=== PATIENT | male | born 1970 | race African-American/Black ===

== ENCOUNTER 2016-07-19 12:41 | Emergency (ER) | payer OTHER, MEDICAID ==
[~2016-07-19] VITALS: Ht 180.3 cm; Wt 107.0 kg
[~2016-07-19 12:41] MED LIST: ALBU1AER INH; FOLI1 PO; HYDR-3535 PO; ZOFR4TAB3 SL
[2016-07-19 12:54] VITALS: BP 145/77; PULSE 87; RESP 24; TEMP 98.8; O2SAT 100
[2016-07-19] MEDS ORDERED: SODIUM CHLOR 0.9% 1000 ML INJ 1,000 ML IV ONE ×2 (13:35→13:45)
[2016-07-19 13:44] LABS: BASOPHIL # 0.5 TH/MM3 (0-0.2); BASOPHIL % 5.9 % (0.0-2.0); EOSINOPHIL # 0.1 TH/MM3 (0-0.4); EOSINOPHIL % 0.7 % (0.0-4.0); HEMATOCRIT 35.9 % (39.0-51.0); LYMPH % 20.1 % (9.0-44.0); LYMPHOCYTE # 1.9 TH/MM3 (1.0-4.8); MEAN CELL VOLUME 78.3 FL (80.0-100.0); MEAN CORPUSCULAR HEMOGLOBIN 25.3 PG (27.0-34.0); MEAN CORPUSCULAR HGB CONC 32.4 % (32.0-36.0); NEUT % 64.3 % (16.0-70.0); PLATELET COUNT 194 TH/MM3 (150-450); RED BLOOD COUNT 4.59 MIL/MM3 (4.50-5.90); RED CELL DISTRIBUTION WIDTH 16.1 % (11.6-17.2); WHITE BLOOD COUNT 9.3 TH/MM3 (4.0-11.0)
[2016-07-19] MEDS ORDERED: diphenhydrAMINE HCL 50 MG/ML VIAL IV ONE (13:45)
[2016-07-19] MEDS ORDERED: HYDROmorphone HCL PF 2 MG/ML VIAL IVS ONE (13:45)
[2016-07-19] MEDS ORDERED: SODIUM CHLORIDE 0.9% FLUSH 5 ML FLUSH IVF PRN (13:45)
[2016-07-19 13:49] VITALS: BP 141/77; PULSE 69; RESP 18; O2SAT 98
[2016-07-19 13:49] LABS: BLOOD, URINE NEG (NEG); GLUCOSE,URINE NEG (NEG); KETONE, URINE NEG (NEG); NITRITE,URINE NEG (NEG); PH, URINE 7.5 (5.0-8.5)
[2016-07-19 13:50] LABS: METHOD OF COLLECTION CLEAN CATCH; URINE COLOR YELLOW (YELLW/STRAW)
[2016-07-19 13:52] LABS: CHLORIDE 110 MEQ/L (98-107); POTASSIUM 4.1 MEQ/L (3.5-5.1); SODIUM (NA) 143 MEQ/L (136-145)
[2016-07-19 13:53] LABS: COMMENT (UR) CULT NOT INDICATED; CULTURE IF INDICATED CULT NOT INDICATED; RBC, URINE 0-3 /hpf (0-3)
[2016-07-19 13:56] LABS: ANION GAP 12 MEQ/L (5-15); BICARBONATE 21.4 MEQ/L (21.0-32.0); BLOOD UREA NITROGEN 9 MG/DL (7-18)
[2016-07-19 13:59] LABS: ALT (GPT) 73 U/L (12-78); AST (GOT) 50 U/L (15-37); GLOMERULAR FILTRATION RATE 98 ML/MIN (>89)
[2016-07-19 14:00] LABS: TOTAL BILIRUBIN ADULT 1.5 MG/DL (0.2-1.0)
[2016-07-19 14:02] LABS: ALKALINE PHOSPHATASE 87 U/L (45-117)
[2016-07-19 14:05] LABS: POLYS (SEG NEUTROPHILS) 63 % (16-70); WBC DIFF SAMPLE 100
[2016-07-19 14:06] LABS: SCAN/DIFF FINAL DIFF MANUAL
[2016-07-19 14:17] LABS: HEMO FLAGS AUTO DIFF; NEUTROPHIL # MANUAL DIFF 5.9 TH/MM3 (1.8-7.7)
[2016-07-19 14:18] LABS: RETIC % 3.7 % (0.4-3.0)
--- NOTE | 2016-07-19 14:23 | PD ---
HPI Chief Complaint: Sickle Cell Time Seen by Provider: 13:32 Travel History International Travel<30 days: No Contact w/Intl Traveler<30days: No Traveled to known affect area: No History of Present Illness HPI Patient is a 46-year-old male with history of sickle cell disease, presents to emergency room with complaints of sickle cell crisis. Patient reports that when he has to sickle cell crisis, his upper back, his shoulders in all his joints are achy. Patient reports that his symptoms began last night and has progressed throughout the day today. Patient denies fevers or chills. Patient denies chest pain or shortness of breath. Patient reports that his symptoms feel exactly the same to when he has had this previous sickle cell crisis in the past. PFSH Past Medical History Anemia: Yes (SICKLE CELL DISEASE) Arthritis: No Asthma: Yes Autoimmune Disease: No Blood Disorders: Yes (SICKLE CELL) Heart Rhythm Problems: No Cancer: No Cardiovascular Problems: Yes High Cholesterol: No Chemotherapy: No Chest Pain: No Congestive Heart Failure: No COPD: No Cerebrovascular Accident: No Diabetes: No Diminished Hearing: No Endocrine: No Gastrointestinal Disorders: No GERD: No Glaucoma: No Genitourinary: No Headaches: No Hepatitis: No Hiatal Hernia: No Hypertension: No Immune Disorder: No Implanted Vascular Access Dvce: No Kidney Stones: No Musculoskeletal: No Neurologic: No Psychiatric: No Reproductive: No Respiratory: No Immunizations Current: Yes Migraines: No Myocardial Infarction: No Radiation Therapy: No Renal Failure: No Seizures: No Sickle Cell Disease: Yes Sleep Apnea: No Thyroid Disease: No Ulcer: No Influenza Vaccination: No ?: Not Past Surgical History Abdominal Surgery: Yes Appendectomy: No Cholecystectomy: Yes Ear Surgery: No Eye Surgery: No Other Surgery: Yes (CHOLECYSTECTOMY ) Social History Alcohol Use: Yes (OCC) Tobacco Use: No Substance Use: Yes (MARIJUANA) Allergies-Medications (Allergen,Severity, Reaction): Coded Allergies: No Known Allergies (Unverified , 07/19/16) Reported Meds & Prescriptions Reported Meds & Active Scripts Active No Active Prescriptions or Reported Medications Review of Systems General / Constitutional: No: Fever Eyes: No: Visual changes HENT: No: Headaches Cardiovascular: No: Chest Pain or Discomfort Respiratory: No: Shortness of Breath Gastrointestinal: No: Abdominal Pain Genitourinary: No: Dysuria Musculoskeletal: Positive: Arthralgias, Pain Skin: No Rash Neurologic: No: Weakness Psychiatric: No: Depression Endocrine: No: Polydipsia Hematologic/Lymphatic: No: Easy Bruising Physical Exam Narrative GENERAL: Patient uncomfortable and in moderate distress SKIN: Warm and dry. HEAD: Atraumatic. Normocephalic. ENT: No nasal bleeding or discharge. Mucous membranes pink and moist. NECK: Trachea midline. No JVD. CARDIOVASCULAR: Regular rate and rhythm. No murmur appreciated. RESPIRATORY: No accessory muscle use. Clear to auscultation. Breath sounds equal bilaterally. GASTROINTESTINAL: Abdomen soft, non-tender, nondistended. Hepatic and splenic margins not palpable. MUSCULOSKELETAL: No obvious deformities. No clubbing. No cyanosis. No edema. NEUROLOGICAL: Awake and alert. No obvious cranial nerve deficits. Motor grossly within normal limits. Normal speech. Data Data Last Documented VS Vital Signs Date Time Temp Pulse Resp B/P Pulse Ox O2 Delivery O2 Flow Rate FiO2 07/19/16 15:10 18 07/19/16 13:49 69 141/77 98 Nasal Cannula 2 07/19/16 12:54 98.8 Orders Complete Blood Count With Diff (07/19/16 13:35) Comprehensive Metabolic Panel (07/19/16 13:35) Retic Count (07/19/16 13:35) Urinalysis - C+S If Indicated (07/19/16 13:35) Ecg Monitoring (07/19/16 13:35) Iv Access Insert/Monitor (07/19/16 13:35) Oximetry (07/19/16 13:35) Hydromorphone Pf Inj (Dilaudid Pf Inj) (07/19/16 13:45) Sodium Chloride 0.9% Flush (Ns Flush) (07/19/16 13:45) Sodium Chlor 0.9% 1000 Ml Inj (Ns 1000 M (07/19/16 13:35) Diphenhydramine Inj (Benadryl Inj) (07/19/16 13:45) Sodium Chlor 0.9% 1000 Ml Inj (Ns 1000 M (07/19/16 13:45) Hydromorphone Pf Inj (Dilaudid Pf Inj) (07/19/16 14:30) Ketorolac Inj (Toradol Inj) (07/19/16 14:30) Labs Laboratory Tests Test 07/19/16 13:30 White Blood Count 9.3 TH/MM3 Red Blood Count 4.59 MIL/MM3 Hemoglobin 11.6 GM/DL Hematocrit 35.9 % Mean Corpuscular Volume 78.3 FL Mean Corpuscular Hemoglobin 25.3 PG Mean Corpuscular Hemoglobin 32.4 % Concent Red Cell Distribution Width 16.1 % Platelet Count 194 TH/MM3 Mean Platelet Volume 8.1 FL Neutrophils (%) (Auto) 64.3 % Lymphocytes (%) (Auto) 20.1 % Monocytes (%) (Auto) 9.0 % Eosinophils (%) (Auto) 0.7 % Basophils (%) (Auto) 5.9 % Neutrophils # (Auto) 6.0 TH/MM3 Lymphocytes # (Auto) 1.9 TH/MM3 Monocytes # (Auto) 0.8 TH/MM3 Eosinophils # (Auto) 0.1 TH/MM3 Basophils # (Auto) 0.5 TH/MM3 CBC Comment AUTO DIFF Differential Total Cells 100 Counted Neutrophils % (Manual) 63 % Lymphocytes % 26 % Monocytes % 11 % Neutrophils # (Manual) 5.9 TH/MM3 Differential Comment FINAL DIFF MANUAL Reticulocyte Count 3.7 % Absolute Reticulocyte Count 174.7 MIL/L Urine Collection Type CLEAN CATCH Urine Color YELLOW Urine Turbidity CLEAR Urine pH 7.5 Urine Specific [place] 1.015 Urine Protein NEG mg/dL Urine Glucose (UA) NEG mg/dL Urine Ketones NEG mg/dL Urine Occult Blood NEG Urine Nitrite NEG Urine Bilirubin NEG Urine Leukocyte Esterase NEG Urine RBC 0-3 /hpf Microscopic Urinalysis Comment CULT NOT INDICATED Sodium Level 143 MEQ/L Potassium Level 4.1 MEQ/L Chloride Level 110 MEQ/L Carbon Dioxide Level 21.4 MEQ/L Anion Gap 12 MEQ/L Blood Urea Nitrogen 9 MG/DL Creatinine 1.00 MG/DL Estimat Glomerular Filtration 98 ML/MIN Rate Random Glucose 103 MG/DL Calcium Level 8.9 MG/DL Total Bilirubin 1.5 MG/DL Aspartate Amino Transf 50 U/L (AST/SGOT) Alanine Aminotransferase 73 U/L (ALT/SGPT) Alkaline Phosphatase 87 U/L Total Protein 8.1 GM/DL Albumin 4.3 GM/DL MDM Medical Decision Making Medical Screen Exam Complete: Yes Emergency Medical Condition: Yes Interpretation(s) Vital Signs Date Time Temp Pulse Resp B/P Pulse Ox O2 Delivery O2 Flow Rate FiO2 07/19/16 14:12 18 07/19/16 13:49 69 18 141/77 98 Nasal Cannula 2 07/19/16 13:29 98 Nasal Cannula 2 07/19/16 12:54 98.8 87 24 145/77 100 Laboratory Tests Test 07/19/16 13:30 Differential Total Cells 100 Counted Neutrophils % (Manual) 63 % (16-70) Lymphocytes % 26 % (9-44) Monocytes % 11 % (0-8) Differential Comment FINAL DIFF MANUAL Urine Collection Type CLEAN CATCH Urine Color YELLOW (YELLW/STRAW) Urine Turbidity CLEAR (CLEAR) Urine pH 7.5 (5.0-8.5) Urine Specific [place] 1.015 (1.002-1.035) Urine Protein NEG mg/dL (NEG-TRACE) Urine Glucose (UA) NEG mg/dL (NEG) Urine Ketones NEG mg/dL (NEG) Urine Occult Blood NEG (NEG) Urine Nitrite NEG (NEG) Urine Bilirubin NEG (NEG) Urine Leukocyte Esterase NEG (NEG) Urine RBC 0-3 /hpf (0-3) Microscopic Urinalysis Comment CULT NOT INDICATED Sodium Level 143 MEQ/L (136-145) Potassium Level 4.1 MEQ/L (3.5-5.1) Chloride Level 110 MEQ/L (98-107) Carbon Dioxide Level 21.4 MEQ/L (21.0-32.0) Anion Gap 12 MEQ/L (5-15) Blood Urea Nitrogen 9 MG/DL (7-18) Creatinine 1.00 MG/DL (0.60-1.30) Estimat Glomerular Filtration 98 ML/MIN (>89) Rate Random Glucose 103 MG/DL (74-106) Calcium Level 8.9 MG/DL (8.5-10.1) Total Bilirubin 1.5 MG/DL (0.2-1.0) Aspartate Amino Transf 50 U/L (15-37) (AST/SGOT) Alanine Aminotransferase 73 U/L (12-78) (ALT/SGPT) Alkaline Phosphatase 87 U/L (45-117) Total Protein 8.1 GM/DL (6.4-8.2) Albumin 4.3 GM/DL (3.4-5.0) Laboratory Tests Test 07/19/16 13:30 White Blood Count 9.3 TH/MM3 (4.0-11.0) Red Blood Count 4.59 MIL/MM3 (4.50-5.90) Hemoglobin 11.6 GM/DL (13.0-17.0) Hematocrit 35.9 % (39.0-51.0) Mean Corpuscular Volume 78.3 FL (80.0-100.0) Mean Corpuscular Hemoglobin 25.3 PG (27.0-34.0) Mean Corpuscular Hemoglobin 32.4 % Concent (32.0-36.0) Red Cell Distribution Width 16.1 % (11.6-17.2) Platelet Count 194 TH/MM3 (150-450) Mean Platelet Volume 8.1 FL (7.0-11.0) Neutrophils (%) (Auto) 64.3 % (16.0-70.0) Lymphocytes (%) (Auto) 20.1 % (9.0-44.0) Monocytes (%) (Auto) 9.0 % (0.0-8.0) Eosinophils (%) (Auto) 0.7 % (0.0-4.0) Basophils (%) (Auto) 5.9 % (0.0-2.0) Neutrophils # (Auto) 6.0 TH/MM3 (1.8-7.7) Lymphocytes # (Auto) 1.9 TH/MM3 (1.0-4.8) Monocytes # (Auto) 0.8 TH/MM3 (0-0.9) Eosinophils # (Auto) 0.1 TH/MM3 (0-0.4) Basophils # (Auto) 0.5 TH/MM3 (0-0.2) CBC Comment AUTO DIFF Differential Total Cells 100 Counted Neutrophils % (Manual) 63 % (16-70) Lymphocytes % 26 % (9-44) Monocytes % 11 % (0-8) Neutrophils # (Manual) 5.9 TH/MM3 (1.8-7.7) Differential Comment FINAL DIFF MANUAL Reticulocyte Count 3.7 % (0.4-3.0) Absolute Reticulocyte Count 174.7 MIL/L (20.0-150.0) Urine Collection Type CLEAN CATCH Urine Color YELLOW (YELLW/STRAW) Urine Turbidity CLEAR (CLEAR) Urine pH 7.5 (5.0-8.5) Urine Specific [place] 1.015 (1.002-1.035) Urine Protein NEG mg/dL (NEG-TRACE) Urine Glucose (UA) NEG mg/dL (NEG) Urine Ketones NEG mg/dL (NEG) Urine Occult Blood NEG (NEG) Urine Nitrite NEG (NEG) Urine Bilirubin NEG (NEG) Urine Leukocyte Esterase NEG (NEG) Urine RBC 0-3 /hpf (0-3) Microscopic Urinalysis Comment CULT NOT INDICATED Sodium Level 143 MEQ/L (136-145) Potassium Level 4.1 MEQ/L (3.5-5.1) Chloride Level 110 MEQ/L (98-107) Carbon Dioxide Level 21.4 MEQ/L (21.0-32.0) Anion Gap 12 MEQ/L (5-15) Blood Urea Nitrogen 9 MG/DL (7-18) Creatinine 1.00 MG/DL (0.60-1.30) Estimat Glomerular Filtration 98 ML/MIN (>89) Rate Random Glucose 103 MG/DL (74-106) Calcium Level 8.9 MG/DL (8.5-10.1) Total Bilirubin 1.5 MG/DL (0.2-1.0) Aspartate Amino Transf 50 U/L (15-37) (AST/SGOT) Alanine Aminotransferase 73 U/L (12-78) (ALT/SGPT) Alkaline Phosphatase 87 U/L (45-117) Total Protein 8.1 GM/DL (6.4-8.2) Albumin 4.3 GM/DL (3.4-5.0) Differential Diagnosis Sickle cell crisis, acute chest syndrome, anemia, electrolyte abnormality Narrative Course Patient is a 46-year-old male who presents to the emergency room with complaints of sickle cell crisis. Patients symptoms began last night, and patient reports that symptoms are typical for his sickle cell crisis. Pt denies chest pain/sob. Pt requesting IV dilaudid for his pain. Patient does follow up with geological technical officer as outpt. cbc, bmp, retic count ordered for pt iv placed, will hydrate pt with iv fluids 1424: pt re-evaluated, pt with continued pain, will remediate, overall, pt reports that pain has improved Patient reevaluated, patient reports that he is feeling much better. Patient reports near resolution of symptoms. Patient reports that he is ready to go home. Patient request refill on his pain medications until he can be seen by his doctor. All labs and studies reviewed with pt in detail. Pt understands importance of following up with his geological technical officer and pcp. signs and symptoms of when to return to the emergency room reviewed with patient. Patient will return to ER as needed. Diagnosis Primary Impression: Vasoocclusive sickle cell crisis Patient Instructions: General Instructions, Narcotic given in the ED Additional Instructions: Please follow-up with your primary care doctor as well as your geological technical officer as soon as possible Please return to ER as needed Do not drive or operate heavy machinery while taking narcotic pain medication Med/Other Pt SpecificInfo: Prescription(s) given Scripts Oxycodone-Acetaminophen (Percocet)5-325 mg Tab1 Tab PO Q6H PRN (PAIN) #6 TAB Ref 0 Prov:Alicja Ervin DO 07/19/16 Disposition: 01 DISCHARGE HOME Condition: Stable Alicja Ervin DO Jul 19, 2016 14:23
[2016-07-19 14:24] LABS: REVIEW FLAG FINAL
[2016-07-19] MEDS ORDERED: HYDROmorphone HCL PF 1 MG/ML VIAL IV PUSH ONE (14:30)
[2016-07-19] MEDS ORDERED: KETOROLAC TROMETHAMINE 30 MG/ML (IVP) VIAL IV PUSH ONE (14:30)
[2016-07-19 15:10] VITALS: RESP 18
[2016-07-19] MEDS ORDERED: PERC5TAB12 PO (15:32)
[2016-07-19 15:47] VITALS: BP 140/76
== END 2016-07-19 15:48 | disposition home or self-care (01) ==
LOC: PHED 12:41
DX: D57.00 Hb-SS disease with crisis, unspecified (principal)
CPT/HCPCS: 80053; 81001; 85007; 85027; 85044; 96361; 96374; 96375; 96376; 99284; J1170; J1200; J1885; J7030

== ENCOUNTER 2016-11-04 06:23 | Emergency (ER) | payer OTHER, MEDICAID ==
[~2016-11-04] VITALS: Ht 177.8 cm; Wt 107.8 kg
[~2016-11-04 06:23] MED LIST changes: -ALBU1AER INH; -FOLI1 PO; -HYDR-3535 PO; +PERC5TAB12 PO; -ZOFR4TAB3 SL
[2016-11-04 06:31] VITALS: BP 142/80; PULSE 90; RESP 18; TEMP 98.9; O2SAT 100
[2016-11-04] MEDS ORDERED: SODIUM CHLOR 0.9% 1000 ML INJ 1,000 ML IV ONE (06:57)
[2016-11-04] MEDS ORDERED: ONDANSETRON HCL 4 MG/2 ML VIAL IVP ONE (07:00)
[2016-11-04] MEDS ORDERED: HYDROmorphone HCL PF 1 MG/ML VIAL IVS ONE (07:00)
[2016-11-04] MEDS ORDERED: SODIUM CHLORIDE 0.9% FLUSH 10 ML FLUSH IVF PRN (07:00)
--- NOTE | 2016-11-04 07:06 | PD ---
HPI Chief Complaint: Sickle Cell Time Seen by Provider: 06:59 Travel History International Travel<30 days: No Contact w/Intl Traveler<30days: No Traveled to known affect area: No History of Present Illness HPI The patient is a 46-year-old male with a history of sickle cell disease and frequent visitor to this emergency department who presents to emergency room with his usual sickle cell pain crisis symptoms, pain in the shoulders, throbbing pain across his chest, arthralgias and myalgias since 4:30 PM yesterday. The symptoms are progressively worsening. He denies any fever or chills. He denies any cough. He denies any nausea, vomiting or diarrhea. PFSH Past Medical History Anemia: Yes (SICKLE CELL DISEASE) Arthritis: No Asthma: Yes Autoimmune Disease: No Blood Disorders: Yes (SICKLE CELL) Heart Rhythm Problems: No Cancer: No Cardiovascular Problems: Yes High Cholesterol: No Chemotherapy: No Chest Pain: No Congestive Heart Failure: No COPD: No Cerebrovascular Accident: No Diabetes: No Diminished Hearing: No Endocrine: No Gastrointestinal Disorders: No GERD: No Glaucoma: No Genitourinary: No Headaches: No Hepatitis: No Hiatal Hernia: No Hypertension: No Immune Disorder: No Implanted Vascular Access Dvce: No Kidney Stones: No Musculoskeletal: No Neurologic: No Psychiatric: No Reproductive: No Respiratory: No Immunizations Current: Yes Migraines: No Myocardial Infarction: No Radiation Therapy: No Renal Failure: No Seizures: No Sickle Cell Disease: Yes Sleep Apnea: No Thyroid Disease: No Ulcer: No Past Surgical History Abdominal Surgery: Yes Appendectomy: No Cholecystectomy: Yes Ear Surgery: No Eye Surgery: No Other Surgery: Yes (CHOLECYSTECTOMY ) Social History Alcohol Use: Yes (OCC) Tobacco Use: No Substance Use: Yes (MARIJUANA) Allergies-Medications (Allergen,Severity, Reaction): Coded Allergies: No Known Allergies (Unverified , 07/19/16) Reported Meds & Prescriptions Reported Meds & Active Scripts Active Percocet (Oxycodone-Acetaminophen) 5-325 mg Tab 1 Tab PO Q6H PRN Review of Systems Except as stated in HPI: all other systems reviewed are Neg Physical Exam Narrative GENERAL: The patient is alert, oriented 3 in moderate discomfort distress with his pain. His vital signs show blood pressure 142/80 but otherwise normal. SKIN: Focused skin assessment warm/dry. No skin rashes noted. HEAD: Atraumatic. Normocephalic. EYES: Pupils equal and round. No scleral icterus. No injection or drainage. ENT: No nasal bleeding or discharge. Mucous membranes pink and moist. NECK: Trachea midline. No JVD. CARDIOVASCULAR: Regular rate and rhythm. No murmur appreciated. RESPIRATORY: No accessory muscle use. Clear to auscultation. Breath sounds equal bilaterally. GASTROINTESTINAL: Abdomen soft, non-tender, nondistended. Hepatic and splenic margins not palpable. No guarding or rebound is present. MUSCULOSKELETAL: No obvious deformities. No clubbing. No cyanosis. No edema. NEUROLOGICAL: Awake and alert. No obvious cranial nerve deficits. Motor grossly within normal limits. Normal speech. PSYCHIATRIC: Appropriate mood and affect; insight and judgment normal. Data Data Last Documented VS Vital Signs Date Time Temp Pulse Resp B/P Pulse Ox O2 Delivery O2 Flow Rate FiO2 11/04/16 06:55 16 100 Nasal Cannula 2 11/04/16 06:31 98.9 90 142/80 Orders Complete Blood Count With Diff (11/04/16 06:57) Comprehensive Metabolic Panel (11/04/16 06:57) Retic Count (11/04/16 06:57) Urinalysis - C+S If Indicated (11/04/16 06:57) Ecg Monitoring (11/04/16 06:57) Iv Access Insert/Monitor (11/04/16 06:57) Oximetry (11/04/16 06:57) Ondansetron Inj (Zofran Inj) (11/04/16 07:00) Sodium Chloride 0.9% Flush (Ns Flush) (11/04/16 07:00) Sodium Chlor 0.9% 1000 Ml Inj (Ns 1000 M (11/04/16 06:57) Hydromorphone Pf Inj (Dilaudid Pf Inj) (11/04/16 07:00) [facility] Medical Decision Making Medical Screen Exam Complete: Yes Emergency Medical Condition: Yes Medical Record Reviewed: Yes Differential Diagnosis Vaso-occlusive crisis, anemia, sepsis, electrolyte disorder, chest pain syndrome Narrative Course It is now 704 and the patient is transferred to Dr. Grace. Michael Castro MD Nov 04, 2016 07:06
[2016-11-04 07:33] VITALS: BP 140/76; PULSE 76; RESP 16; O2SAT 100
[2016-11-04 07:40] LABS: AUTOMATED NEUTROPHIL # 7.7 TH/MM3 (1.8-7.7); BASOPHIL # 0.2 TH/MM3 (0-0.2); BASOPHIL % 1.4 % (0.0-2.0); EOSINOPHIL # 0.2 TH/MM3 (0-0.4); EOSINOPHIL % 1.4 % (0.0-4.0); HEMATOCRIT 35.3 % (39.0-51.0); MEAN CELL VOLUME 78.5 FL (80.0-100.0); MEAN CORPUSCULAR HEMOGLOBIN 24.5 PG (27.0-34.0); MEAN CORPUSCULAR HGB CONC 31.2 % (32.0-36.0); MONO % 8.7 % (0.0-8.0); NEUT % 70.5 % (16.0-70.0); PLATELET COUNT 178 TH/MM3 (150-450); RED CELL DISTRIBUTION WIDTH 16.5 % (11.6-17.2); WHITE BLOOD COUNT 11.1 TH/MM3 (4.0-11.0)
[2016-11-04 07:41] LABS: CHLORIDE 103 MEQ/L (98-107); HEMO FLAGS AUTO DIFF; POTASSIUM 4.1 MEQ/L (3.5-5.1); SODIUM (NA) 140 MEQ/L (136-145)
[2016-11-04 07:45] LABS: ANION GAP 10 MEQ/L (5-15); BICARBONATE 26.8 MEQ/L (21.0-32.0)
[2016-11-04 07:46] LABS: BLOOD UREA NITROGEN 11 MG/DL (7-18)
[2016-11-04 07:49] LABS: ALT (GPT) 73 U/L (12-78); AST (GOT) 74 U/L (15-37); GLOMERULAR FILTRATION RATE 88 ML/MIN (>89)
[2016-11-04] MEDS ORDERED: FOLI1TAB4 PO (07:49)
[2016-11-04 07:50] LABS: TOTAL BILIRUBIN ADULT 1.2 MG/DL (0.2-1.0)
[2016-11-04 07:51] LABS: ALKALINE PHOSPHATASE 97 U/L (45-117)
[2016-11-04 08:37] LABS: OVALOCYTES 1+ (NORMAL); TARGET CELLS 1+ (NORMAL); TEARDROP RBCS 1+ (NORMAL)
[2016-11-04 08:38] LABS: SCAN/DIFF AUTO DIFF CONFIRMED
[2016-11-04 08:58] LABS: RETIC % 3.8 % (0.4-3.0); REVIEW FLAG FINAL
[2016-11-04] MEDS ORDERED: MORPHINE SULFATE 4 MG/ML INJ IV PUSH ONE (09:00)
[2016-11-04 09:11] VITALS: BP 117/58; PULSE 80; RESP 18; O2SAT 100
[2016-11-04 09:11] LABS: BLOOD, URINE NEG (NEG); GLUCOSE,URINE NEG (NEG); KETONE, URINE NEG (NEG); NITRITE,URINE NEG (NEG); PH, URINE 5.5 (5.0-8.5)
[2016-11-04 09:20] LABS: METHOD OF COLLECTION CLEAN CATCH; RBC, URINE 0-3 /hpf (0-3); URINE COLOR YELLOW (YELLW/STRAW)
[2016-11-04 09:21] LABS: COMMENT (UR) CULT NOT INDICATED; CULTURE IF INDICATED CULT NOT INDICATED; SQUAMOUS EPITHELIAL CELL URINE 0-5 /hpf (0-5)
--- NOTE | 2016-11-04 09:30 | PD ---
Physical Exam Date Seen by Provider: Nov 04, 2016 Time Seen by Provider: 09:28 Narrative 46-year-old male came to the emergency room for sickle cell crisis. He was seen by the previous ER physician. Please refer to his notes for detailed history and physical. Sign out to me was to follow-up on the labs. Patient had received pain medication and IV fluid bolus. I was told by the nurse that patient was complaining of pain again. I went and saw the patient and he said his pain was mostly in the lower back radiating down to his right leg. Blood test results are back and patient is not anemic. His reticulocyte count is elevated. I've ordered 4 more milligrams of IV morphine. At this point I will discharge him home. Data Data Last Documented VS Orders Complete Blood Count With Diff (11/04/16 06:57) Comprehensive Metabolic Panel (11/04/16 06:57) Retic Count (11/04/16 06:57) Urinalysis - C+S If Indicated (11/04/16 06:57) Ecg Monitoring (11/04/16 06:57) Iv Access Insert/Monitor (11/04/16 06:57) Oximetry (11/04/16 06:57) Ondansetron Inj (Zofran Inj) (11/04/16 07:00) Sodium Chloride 0.9% Flush (Ns Flush) (11/04/16 07:00) Sodium Chlor 0.9% 1000 Ml Inj (Ns 1000 M (11/04/16 06:57) Hydromorphone Pf Inj (Dilaudid Pf Inj) (11/04/16 07:00) Morphine Inj (Morphine Inj) (11/04/16 09:00) Labs [facility] Supervised Visit with [facility]: No Diagnosis Primary Impression: Sickle cell pain crisis Referrals: Primary Care Physician 2 days Additional Instruction: Please return to the ER if the condition worsens or any other new concerns. Otherwise follow-up with your primary care. Med/Other Pt SpecificInfo: Prescription(s) given Scripts Oxycodone-Acetaminophen (Percocet)5-325 mg Tab1 Tab PO Q6H PRN (PAIN) #6 TAB Ref 0 Prov:Precious Grace MD 11/04/16 Disposition: 01 DISCHARGE HOME Condition: Stable Precious Grace MD Nov 04, 2016 09:30 Hematocrit 35.3 % Mean Corpuscular Volume 78.5 FL Mean Corpuscular Hemoglobin 24.5 PG Mean Corpuscular Hemoglobin 31.2 % Concent Red Cell Distribution Width 16.5 % Platelet Count 178 TH/MM3 Mean Platelet Volume 8.4 FL Neutrophils (%) (Auto) 70.5 % Lymphocytes (%) (Auto) 18.0 % Monocytes (%) (Auto) 8.7 % Eosinophils (%) (Auto) 1.4 % Basophils (%) (Auto) 1.4 % Neutrophils # (Auto) 7.7 TH/MM3 Lymphocytes # (Auto) 2.0 TH/MM3 Monocytes # (Auto) 1.0 TH/MM3 Eosinophils # (Auto) 0.2 TH/MM3 Basophils # (Auto) 0.2 TH/MM3 CBC Comment AUTO DIFF Differential Comment AUTO DIFF CONFIRMED Target Cells 1+ Tear Drop Cells 1+ Ovalocytes 1+ Reticulocyte Count 3.8 % Absolute Reticulocyte Count 167.6 MIL/L Sodium Level 140 MEQ/L Potassium Level 4.1 MEQ/L Chloride Level 103 MEQ/L Carbon Dioxide Level 26.8 MEQ/L Anion Gap 10 MEQ/L Blood Urea Nitrogen 11 MG/DL Creatinine 1.10 MG/DL Estimat Glomerular Filtration 88 ML/MIN Rate Random Glucose 88 MG/DL Calcium Level 8.8 MG/DL Total Bilirubin 1.2 MG/DL Aspartate Amino Transf 74 U/L (AST/SGOT) Alanine Aminotransferase 73 U/L (ALT/SGPT) Alkaline Phosphatase 97 U/L Total Protein 7.9 GM/DL Albumin 4.1 GM/DL Urine Collection Type CLEAN CATCH Urine Color YELLOW Urine Turbidity CLEAR Urine pH 5.5 Urine Specific [place] 1.012 Urine Protein NEG mg/dL Urine Glucose (UA) NEG mg/dL Urine Ketones NEG mg/dL Urine Occult Blood NEG Urine Nitrite NEG Urine Bilirubin NEG Urine Leukocyte Esterase NEG Urine RBC 0-3 /hpf Urine Squamous Epithelial 0-5 /hpf Cells Microscopic Urinalysis Comment CULT NOT INDICATED Urine Collection Time 09:04 [facility] Supervised Visit with [facility]: No Diagnosis Primary Impression: Sickle cell pain crisis Referrals: Primary Care Physician 2 days Additional Instruction: Please return to the ER if the condition worsens or any other new concerns. Otherwise follow-up with your primary care. Med/Other Pt SpecificInfo: Prescription(s) given Scripts Oxycodone-Acetaminophen (Percocet)5-325 mg Tab1 Tab PO Q6H PRN (PAIN) #6 TAB Ref 0 Prov:Precious Grace MD 11/04/16 Disposition: 01 DISCHARGE HOME Condition: Stable Precious Grace MD Nov 04, 2016 09:30
[2016-11-04] MEDS ORDERED: PERC5TAB12 PO (10:23)
== END 2016-11-04 10:30 | disposition home or self-care (01) ==
LOC: PHED 06:23
DX: D57.00 Hb-SS disease with crisis, unspecified (principal); M25.519 Pain in unspecified shoulder; R07.9 Chest pain, unspecified; M54.5 Low back pain; M79.604 Pain in right leg; M25.50 Pain in unspecified joint; M79.1 Myalgia; Z86.2 Personal history of diseases of the blood and blood-forming organs and certain disorders involving the immune mechanism; Z87.09 Personal history of other diseases of the respiratory system; Z86.79 Personal history of other diseases of the circulatory system
CPT/HCPCS: 80053; 81001; 85025; 85044; 96361; 96374; 96375; 99284; J1170; J2270; J2405; J7030

== ENCOUNTER 2017-03-08 13:52 | Emergency (ER) | payer OTHER, MEDICAID ==
[~2017-03-08] VITALS: Ht 180.3 cm; Wt 118.0 kg
[~2017-03-08 13:52] MED LIST changes: +FOLI1TAB4 PO
[2017-03-08 13:55] VITALS: BP 161/80; PULSE 79; RESP 16; TEMP 98.6; O2SAT 99
[2017-03-08] MEDS ORDERED: FOLI400T PO (15:39)
[2017-03-08] MEDS ORDERED: SODIUM CHLOR 0.9% 1000 ML INJ 1,000 ML IV ONE (15:51)
--- NOTE | 2017-03-08 15:58 | PD ---
HPI Chief Complaint: Sickle Cell Time Seen by Provider: 15:47 Travel History International Travel<30 days: No Contact w/Intl Traveler<30days: No Traveled to known affect area: No History of Present Illness HPI This 46-year-old male is complaining of pain in his hips and his back. He has been treated for sickle cell anemia for many years. He tends to run a hemoglobin around 11. He went to see his doctor this morning and was given treatment in the office but is still having pain. He has not had any fever or chills. Says that he was more active than usual over the weekend and he may have gotten overheated. He has been taking pills at home for pain without much response. He has no history of heart or lung disease. 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 PFS Past Medical History Anemia: Yes (SICKLE CELL DISEASE) Arthritis: No Asthma: Yes Autoimmune Disease: No Blood Disorders: Yes (SICKLE CELL) Heart Rhythm Problems: No Cancer: No Cardiovascular Problems: Yes High Cholesterol: No Chemotherapy: No Chest Pain: No Congestive Heart Failure: No COPD: No Cerebrovascular Accident: No Diabetes: No Diminished Hearing: No Endocrine: No Gastrointestinal Disorders: No GERD: No Glaucoma: No Genitourinary: No Headaches: No Hepatitis: No Hiatal Hernia: No Hypertension: No Immune Disorder: No Implanted Vascular Access Dvce: No Kidney Stones: No Musculoskeletal: No Neurologic: No Psychiatric: No Reproductive: No Respiratory: No Immunizations Current: Yes Migraines: No Myocardial Infarction: No Radiation Therapy: No Renal Failure: No Seizures: No Sickle Cell Disease: Yes Sleep Apnea: No Thyroid Disease: No Ulcer: No Tetanus Vaccination: Unknown Influenza Vaccination: No Past Surgical History Abdominal Surgery: Yes Appendectomy: No Cholecystectomy: Yes Ear Surgery: No Eye Surgery: No Other Surgery: Yes (CHOLECYSTECTOMY ) Social History Alcohol Use: No Tobacco Use: No Substance Use: Yes (pot) Allergies-Medications (Allergen,Severity, Reaction): Coded Allergies: No Known Allergies (Unverified , 03/08/17) Reported Meds & Prescriptions Reported Meds & Active Scripts Active Percocet (Oxycodone-Acetaminophen) 5-325 mg Tab 1 Tab PO Q6H PRN Reported Folic Acid 400 Mcg Tab 400 Mcg PO DAILY Review of Systems General / Constitutional: No: Fever, Chills Eyes: No: Diploplia, Blurred Vision HENT: No: Headaches, Vertigo Cardiovascular: No: Chest Pain or Discomfort, Palpitations Respiratory: No: Cough, Shortness of Breath Gastrointestinal: No: Vomiting, Diarrhea Genitourinary: No: Urgency, Frequency Musculoskeletal: Positive: Myalgias, Pain Skin: No Rash, No Itching Psychiatric: No: Anxiety Endocrine: No: Heat Intolerance Hematologic/Lymphatic: No: Easy Bruising Physical Exam Narrative GENERAL: Well-developed male complaining of pain SKIN: Focused skin assessment warm/dry. HEAD: Atraumatic. Normocephalic. EYES: Pupils equal and round. No scleral icterus. No injection or drainage. ENT: No nasal bleeding or discharge. Mucous membranes pink and moist. NECK: Trachea midline. No JVD. CARDIOVASCULAR: Regular rate and rhythm. No murmur appreciated. RESPIRATORY: No accessory muscle use. Clear to auscultation. Breath sounds equal bilaterally. GASTROINTESTINAL: Abdomen soft, non-tender, nondistended. Hepatic and splenic margins not palpable. MUSCULOSKELETAL: No obvious deformities. No clubbing. No cyanosis. No edema. NEUROLOGICAL: Awake and alert. No obvious cranial nerve deficits. Motor grossly within normal limits. Normal speech. PSYCHIATRIC: Appropriate mood and affect; insight and judgment normal. Data Data Last Documented VS Vital Signs Date Time Temp Pulse Resp B/P (MAP) Pulse Ox O2 Delivery O2 Flow Rate FiO2 03/08/17 17:53 84 20 139/95 (110) 100 Room Air 03/08/17 13:55 98.6 Orders Orders Complete Blood Count With Diff (03/08/17 15:51) Comprehensive Metabolic Panel (03/08/17 15:51) Urinalysis - C+S If Indicated (03/08/17 15:51) Iv Access Insert/Monitor (03/08/17 15:51) Oximetry (03/08/17 15:51) Hydromorphone Pf Inj (Dilaudid Pf Inj) (03/08/17 16:00) Ondansetron Inj (Zofran Inj) (03/08/17 16:00) Sodium Chloride 0.9% Flush (Ns Flush) (03/08/17 16:00) Sodium Chlor 0.9% 1000 Ml Inj (Ns 1000 M (03/08/17 15:51) Hydromorphone Pf Inj (Dilaudid Pf Inj) (03/08/17 17:15) Diphenhydramine Inj (Benadryl Inj) (03/08/17 17:15) Labs Laboratory Tests Test 03/08/17 16:25 03/08/17 16:45 White Blood Count 11.3 TH/MM3 Red Blood Count 4.28 MIL/MM3 Hemoglobin 10.8 GM/DL Hematocrit 33.4 % Mean Corpuscular Volume 78.1 FL Mean Corpuscular Hemoglobin 25.1 PG Mean Corpuscular Hemoglobin Concent 32.2 % Red Cell Distribution Width 16.6 % Platelet Count 198 TH/MM3 Mean Platelet Volume 8.8 FL Neutrophils (%) (Auto) 68.5 % Lymphocytes (%) (Auto) 21.5 % Monocytes (%) (Auto) 8.1 % Eosinophils (%) (Auto) 1.3 % Basophils (%) (Auto) 0.6 % Neutrophils # (Auto) 7.8 TH/MM3 Lymphocytes # (Auto) 2.4 TH/MM3 Monocytes # (Auto) 0.9 TH/MM3 Eosinophils # (Auto) 0.1 TH/MM3 Basophils # (Auto) 0.1 TH/MM3 CBC Comment DIFF FINAL Differential Comment Blood Urea Nitrogen 9 MG/DL Creatinine 1.00 MG/DL Random Glucose 91 MG/DL Total Protein 7.2 GM/DL Albumin 3.5 GM/DL Calcium Level 8.4 MG/DL Alkaline Phosphatase 74 U/L Aspartate Amino Transf (AST/SGOT) 44 U/L Alanine Aminotransferase (ALT/SGPT) 66 U/L Total Bilirubin 0.8 MG/DL Sodium Level 141 MEQ/L Potassium Level 4.1 MEQ/L Chloride Level 109 MEQ/L Carbon Dioxide Level 26.6 MEQ/L Anion Gap 5 MEQ/L Estimat Glomerular Filtration Rate 98 ML/MIN Urine Color YELLOW Urine Turbidity CLEAR Urine pH 6.0 Urine Specific [place] 1.012 Urine Protein NEG mg/dL Urine Glucose (UA) NEG mg/dL Urine Ketones NEG mg/dL Urine Occult Blood NEG Urine Nitrite NEG Urine Bilirubin NEG Urine Leukocyte Esterase NEG Urine WBC 0-2 /hpf Urine Squamous Epithelial Cells 0-5 /hpf Microscopic Urinalysis Comment CULT NOT INDICATED MDM Medical Decision Making Medical Screen Exam Complete: Yes Emergency Medical Condition: Yes Medical Record Reviewed: Yes Differential Diagnosis Differential includes sickle cell crisis, Narrative Course Patient has been given IV hydration and repeated doses of pain medication. His lab work is similar to baseline. Says he still having some pain. Admission was offered but the patient wishes to be released. He saw his doctor this morning and was given a prescription for pain medication at that time. Diagnosis Primary Impression: Vasoocclusive sickle cell crisis Disposition: 01 DISCHARGE HOME Condition: Stable Taran Perez MD Mar 08, 2017 15:57
[2017-03-08] MEDS ORDERED: ONDANSETRON HCL 4 MG/2 ML VIAL IVP ONE (16:00)
[2017-03-08] MEDS ORDERED: SODIUM CHLORIDE 0.9% FLUSH 10 ML FLUSH IVF PRN (16:00)
[2017-03-08] MEDS ORDERED: HYDROmorphone HCL PF 2 MG/ML VIAL IVS ONE (16:00)
[2017-03-08 16:57] LABS: AUTOMATED NEUTROPHIL # 7.8 TH/MM3 (1.8-7.7); BASOPHIL # 0.1 TH/MM3 (0-0.2); BASOPHIL % 0.6 % (0.0-2.0); EOSINOPHIL # 0.1 TH/MM3 (0-0.4); EOSINOPHIL % 1.3 % (0.0-4.0); HEMATOCRIT 33.4 % (39.0-51.0); LYMPH % 21.5 % (9.0-44.0); LYMPHOCYTE # 2.4 TH/MM3 (1.0-4.8); MEAN CELL VOLUME 78.1 FL (80.0-100.0); MEAN CORPUSCULAR HEMOGLOBIN 25.1 PG (27.0-34.0); MEAN CORPUSCULAR HGB CONC 32.2 % (32.0-36.0); MONO % 8.1 % (0.0-8.0); NEUT % 68.5 % (16.0-70.0); PLATELET COUNT 198 TH/MM3 (150-450); RED BLOOD COUNT 4.28 MIL/MM3 (4.50-5.90); RED CELL DISTRIBUTION WIDTH 16.6 % (11.6-17.2); WHITE BLOOD COUNT 11.3 TH/MM3 (4.0-11.0)
[2017-03-08 16:58] LABS: HEMO FLAGS DIFF FINAL
[2017-03-08 16:59] LABS: CHLORIDE 109 MEQ/L (98-107); POTASSIUM 4.1 MEQ/L (3.5-5.1); SODIUM (NA) 141 MEQ/L (136-145)
[2017-03-08 17:02] LABS: ANION GAP 5 MEQ/L (5-15); BICARBONATE 26.6 MEQ/L (21.0-32.0); BLOOD UREA NITROGEN 9 MG/DL (7-18)
[2017-03-08 17:05] LABS: ALT (GPT) 66 U/L (12-78); AST (GOT) 44 U/L (15-37)
[2017-03-08 17:06] LABS: GLOMERULAR FILTRATION RATE 98 ML/MIN (>89)
[2017-03-08 17:07] LABS: TOTAL BILIRUBIN ADULT 0.8 MG/DL (0.2-1.0)
[2017-03-08 17:08] LABS: ALKALINE PHOSPHATASE 74 U/L (45-117)
[2017-03-08 17:11] LABS: BLOOD, URINE NEG (NEG); GLUCOSE,URINE NEG (NEG); KETONE, URINE NEG (NEG); NITRITE,URINE NEG (NEG)
[2017-03-08] MEDS ORDERED: diphenhydrAMINE HCL 50 MG/ML VIAL IV PUSH ONE (17:15)
[2017-03-08] MEDS ORDERED: HYDROmorphone HCL PF 2 MG/ML VIAL IV PUSH ONE (17:15)
[2017-03-08 17:16] LABS: URINE COLOR YELLOW (YELLW/STRAW)
[2017-03-08 17:17] LABS: COMMENT (UR) CULT NOT INDICATED; CULTURE IF INDICATED CULT NOT INDICATED; SQUAMOUS EPITHELIAL CELL URINE 0-5 /hpf (0-5); WBC, URINE 0-2 /hpf (0-5)
[2017-03-08 17:53] VITALS: BP 139/95; PULSE 84; RESP 20; O2SAT 100
[2017-03-08 18:45] VITALS: BP 159/95; RESP 18; O2SAT 99
== END 2017-03-08 18:50 | disposition home or self-care (01) ==
LOC: PHED 13:52
DX: D57.00 Hb-SS disease with crisis, unspecified (principal)
CPT/HCPCS: 80053; 81001; 85025; 96361; 96374; 96375; 96376; 99284; J1170; J1200; J2405; J7030

== ENCOUNTER 2017-03-09 21:00 | Emergency (ER) | payer OTHER ==
[~2017-03-09] VITALS: Ht 177.8 cm; Wt 118.1 kg
[~2017-03-09 21:00] MED LIST changes: -FOLI1TAB4 PO; +FOLI400T PO
[2017-03-09 21:04] VITALS: BP 170/84; PULSE 90; RESP 16; TEMP 98.5; O2SAT 99
[2017-03-09] MEDS ORDERED: diphenhydrAMINE HCL 50 MG/ML VIAL IV ONE (21:45)
[2017-03-09] MEDS ORDERED: SODIUM CHLORIDE 0.9% FLUSH 10 ML FLUSH IVF PRN (21:45)
[2017-03-09] MEDS ORDERED: KETOROLAC TROMETHAMINE 30 MG/ML (IVP) VIAL IVP ONE (21:45)
[2017-03-09] MEDS ORDERED: ONDANSETRON HCL 4 MG/2 ML VIAL IVP ONE (21:45)
[2017-03-09] MEDS ORDERED: HYDROmorphone HCL PF 1 MG/ML VIAL IVS ONE (21:45)
[2017-03-09] MEDS ORDERED: SODIUM CHLOR 0.9% 1000 ML INJ 1,000 ML IV ONE (21:45)
--- NOTE | 2017-03-09 21:52 | PD ---
HPI Chief Complaint: Sickle Cell Time Seen by Provider: 21:33 Travel History International Travel<30 days: No Contact w/Intl Traveler<30days: No Traveled to known affect area: No History of Present Illness HPI The patient is a 46-year-old male with a history of sickle cell disease who is been treated for many years for this. He now has a primary care physician, Dr. long and he is being set up with a cyber intel planner. He has not seen a cyber intel planner yet. This is his third visit in 4 days for his pain crisis. He denies any fever, chills, nausea, vomiting or diarrhea. He apparently had hemoglobin electrophoresis that suggested he was doubly heterozygous for hemoglobin at and beta thalassemia. He denies any urinary tract symptoms. His pain is in his hips and back and he denies any chest pain or shortness of breath. His hemoglobin usually runs around 11. He called his primary care physician today and he was told to go the emergency room. PFSH Past Medical History Anemia: Yes (SICKLE CELL DISEASE) Arthritis: No Asthma: Yes Autoimmune Disease: No Blood Disorders: Yes (SICKLE CELL) Heart Rhythm Problems: No Cancer: No Cardiovascular Problems: Yes High Cholesterol: No Chemotherapy: No Chest Pain: No Congestive Heart Failure: No COPD: No Cerebrovascular Accident: No Diabetes: No Diminished Hearing: No Endocrine: No Gastrointestinal Disorders: No GERD: No Glaucoma: No Genitourinary: No Headaches: No Hepatitis: No Hiatal Hernia: No Hypertension: No Immune Disorder: No Implanted Vascular Access Dvce: No Kidney Stones: No Musculoskeletal: No Neurologic: No Psychiatric: No Reproductive: No Respiratory: No Immunizations Current: Yes Migraines: No Myocardial Infarction: No Radiation Therapy: No Renal Failure: No Seizures: No Sickle Cell Disease: Yes Sleep Apnea: No Thyroid Disease: No Ulcer: No Past Surgical History Abdominal Surgery: Yes Appendectomy: No Cholecystectomy: Yes Ear Surgery: No Eye Surgery: No Other Surgery: Yes (CHOLECYSTECTOMY ) Social History Alcohol Use: No Tobacco Use: No Substance Use: Yes (pot) Allergies-Medications (Allergen,Severity, Reaction): Coded Allergies: No Known Allergies (Unverified , 03/09/17) Reported Meds & Prescriptions Reported Meds & Active Scripts Active Percocet (Oxycodone-Acetaminophen) 5-325 mg Tab 1 Tab PO Q6H PRN Reported Folic Acid 400 Mcg Tab 400 Mcg PO DAILY Review of Systems Except as stated in HPI: all other systems reviewed are Neg Physical Exam Narrative GENERAL: The patient is alert, oriented 3 in moderate apparent distress with his hip and back pain. His vital signs show blood pressure 170/84 but otherwise normal. SKIN: Focused skin assessment warm/dry. No skin rash is seen. HEAD: Atraumatic. Normocephalic. EYES: Pupils equal and round. No scleral icterus. No injection or drainage. ENT: No nasal bleeding or discharge. Mucous membranes pink and moist. NECK: Trachea midline. No JVD. CARDIOVASCULAR: Regular rate and rhythm. No murmur appreciated. RESPIRATORY: No accessory muscle use. Clear to auscultation. Breath sounds equal bilaterally. GASTROINTESTINAL: Abdomen soft, non-tender, nondistended. Hepatic and splenic margins not palpable. No guarding or rebound is present. MUSCULOSKELETAL: No obvious deformities. No clubbing. No cyanosis. No edema. NEUROLOGICAL: Awake and alert. No obvious cranial nerve deficits. Motor grossly within normal limits. Normal speech. PSYCHIATRIC: Appropriate mood and affect; insight and judgment normal. Data Data Last Documented VS Vital Signs Date Time Temp Pulse Resp B/P (MAP) Pulse Ox O2 Delivery O2 Flow Rate FiO2 03/09/17 22:24 84 18 141/79 (99) 97 Room Air 03/09/17 21:04 98.5 Orders Orders Basic Metabolic Panel (Bmp) (03/09/17 21:45) Complete Blood Count With Diff (03/09/17 21:45) Ecg Monitoring (03/09/17 21:45) Iv Access Insert/Monitor (03/09/17 21:45) Oximetry (03/09/17 21:45) Ketorolac Inj (Toradol Inj) (03/09/17 21:45) Ondansetron Inj (Zofran Inj) (03/09/17 21:45) Sodium Chloride 0.9% Flush (Ns Flush) (03/09/17 21:45) Sodium Chlor 0.9% 1000 Ml Inj (Ns 1000 M (03/09/17 21:45) Hydromorphone Pf Inj (Dilaudid Pf Inj) (03/09/17 21:45) Diphenhydramine Inj (Benadryl Inj) (03/09/17 21:45) Sodium Chlor 0.9% 1000 Ml Inj (Ns 1000 M (03/09/17 23:00) Labs Laboratory Tests Test 03/09/17 22:00 White Blood Count 13.4 TH/MM3 Red Blood Count 4.06 MIL/MM3 Hemoglobin 10.4 GM/DL Hematocrit 32.1 % Mean Corpuscular Volume 79.1 FL Mean Corpuscular Hemoglobin 25.5 PG Mean Corpuscular Hemoglobin Concent 32.2 % Red Cell Distribution Width 17.4 % Platelet Count 181 TH/MM3 Mean Platelet Volume 8.7 FL Neutrophils (%) (Auto) 67.1 % Lymphocytes (%) (Auto) 21.1 % Monocytes (%) (Auto) 9.4 % Eosinophils (%) (Auto) 1.4 % Basophils (%) (Auto) 1.0 % Neutrophils # (Auto) 9.0 TH/MM3 Lymphocytes # (Auto) 2.8 TH/MM3 Monocytes # (Auto) 1.3 TH/MM3 Eosinophils # (Auto) 0.2 TH/MM3 Basophils # (Auto) 0.1 TH/MM3 CBC Comment AUTO DIFF Differential Comment AUTO DIFF CONFIRMED Platelet Estimate NORMAL Platelet Morphology Comment NORMAL Target Cells 2+ Tear Drop Cells 1+ Ovalocytes 1+ Blood Urea Nitrogen 10 MG/DL Creatinine 1.20 MG/DL Random Glucose 65 MG/DL Calcium Level 8.7 MG/DL Sodium Level 136 MEQ/L Potassium Level 4.0 MEQ/L Chloride Level 103 MEQ/L Carbon Dioxide Level 25.9 MEQ/L Anion Gap 7 MEQ/L Estimat Glomerular Filtration Rate 80 ML/MIN MDM Medical Decision Making Medical Screen Exam Complete: Yes Emergency Medical Condition: Yes Medical Record Reviewed: Yes Interpretation(s) The basic metabolic profile shows a GFR of 80 and random glucose of 65. The patient will be given orange juice to drink. It is now 1127 and the patient feels much better and is able to go home. He has received 2 bags of normal saline IV. Differential Diagnosis Vaso-occlusive crisis, right disorder, anemia requiring transfusion, drug seeking behavior Narrative Course The patient has vaso- occlusive sickle cell crisis. He also has a mild hypoglycemia but is drinking orange juice well. Plan: He needs to follow-up with his primary care physician and follow-up ultimately with the cyber intel planner he was assigned to. Diagnosis Primary Impression: Vasoocclusive sickle cell crisis Additional Impression: Hypoglycemia Additional Instructions: As we discussed, drink plenty of liquids, particularly orange juice, to support here slightly low blood sugar. Do not miss the appointment with your cyber intel planner. Med/Other Pt SpecificInfo: No Change to Meds Disposition: 01 DISCHARGE HOME Condition: Stable Michael Castro MD Mar 09, 2017 21:52
[2017-03-09 22:24] VITALS: BP 141/79; PULSE 84; RESP 18; O2SAT 97
[2017-03-09 22:36] LABS: BASOPHIL # 0.1 TH/MM3 (0-0.2); EOSINOPHIL # 0.2 TH/MM3 (0-0.4); EOSINOPHIL % 1.4 % (0.0-4.0); HEMATOCRIT 32.1 % (39.0-51.0); LYMPH % 21.1 % (9.0-44.0); LYMPHOCYTE # 2.8 TH/MM3 (1.0-4.8); MEAN CELL VOLUME 79.1 FL (80.0-100.0); MEAN CORPUSCULAR HEMOGLOBIN 25.5 PG (27.0-34.0); MEAN CORPUSCULAR HGB CONC 32.2 % (32.0-36.0); MONO % 9.4 % (0.0-8.0); NEUT % 67.1 % (16.0-70.0); PLATELET COUNT 181 TH/MM3 (150-450); RED BLOOD COUNT 4.06 MIL/MM3 (4.50-5.90); RED CELL DISTRIBUTION WIDTH 17.4 % (11.6-17.2); WHITE BLOOD COUNT 13.4 TH/MM3 (4.0-11.0)
[2017-03-09 22:39] LABS: HEMO FLAGS AUTO DIFF
[2017-03-09 22:44] LABS: BICARBONATE 25.9 MEQ/L (21.0-32.0)
[2017-03-09] MEDS ORDERED: SODIUM CHLOR 0.9% 1000 ML INJ 1,000 ML IV SCH (23:00)
[2017-03-09 23:03] LABS: TARGET CELLS 2+ (NORMAL)
[2017-03-09 23:04] LABS: OVALOCYTES 1+ (NORMAL); PLATELET ESTIMATE SMEAR NORMAL (NORMAL); PLATELET MORPHOLOGY NORMAL (NORMAL); SCAN/DIFF AUTO DIFF CONFIRMED; TEARDROP RBCS 1+ (NORMAL)
[2017-03-09 23:38] VITALS: BP 153/91; PULSE 83; RESP 16; O2SAT 99
[2017-03-10 00:50] VITALS: BP 151/82
== END 2017-03-10 00:51 | disposition home or self-care (01) ==
LOC: PHED 21:00
DX: D57.00 Hb-SS disease with crisis, unspecified (principal); E16.2 Hypoglycemia, unspecified
CPT/HCPCS: 80048; 85025; 96361; 96374; 96375; 99284; J1170; J1200; J1885; J2405; J7030

== ENCOUNTER 2017-07-28 13:07 | Emergency (ER) | payer OTHER ==
[~2017-07-28 13:07] MED LIST changes: -FOLI400T PO
[2017-07-28 14:04] VITALS: BP 128/75; PULSE 70; RESP 20; TEMP 98.3; O2SAT 99
[2017-07-28] MEDS ORDERED: MULTTAB67 PO (15:36)
[2017-07-28] MEDS ORDERED: FOLI1TAB6 (15:36)
[2017-07-28] MEDS ORDERED: SODIUM CHLORIDE 0.9% FLUSH 10 ML FLUSH IVF PRN (16:15)
[2017-07-28] MEDS ORDERED: ONDANSETRON HCL 4 MG/2 ML VIAL IV PUSH ONE (16:15)
[2017-07-28] MEDS ORDERED: HYDROmorphone HCL PF 2 MG/ML VIAL IV PUSH ONE ×3 (16:15→18:00)
[2017-07-28 16:24] VITALS: BP 149/68; PULSE 71; RESP 20; O2SAT 98
[2017-07-28 16:24] LABS: AUTOMATED NEUTROPHIL # 4.8 TH/MM3 (1.8-7.7); BASOPHIL # 0.1 TH/MM3 (0-0.2); EOSINOPHIL # 0.2 TH/MM3 (0-0.4); EOSINOPHIL % 2.2 % (0.0-4.0); HEMATOCRIT 33.1 % (39.0-51.0); HEMOGLOBIN 10.5 GM/DL (13.0-17.0); LYMPH % 30.8 % (9.0-44.0); LYMPHOCYTE # 2.5 TH/MM3 (1.0-4.8); MEAN CELL VOLUME 77.6 FL (80.0-100.0); MEAN CORPUSCULAR HEMOGLOBIN 24.7 PG (27.0-34.0); MEAN CORPUSCULAR HGB CONC 31.8 % (32.0-36.0); MEAN PLATELET VOLUME 8.9 FL (7.0-11.0); MONO % 7.6 % (0.0-8.0); MONOCYTE # 0.6 TH/MM3 (0-0.9); NEUT % 58.4 % (16.0-70.0); PLATELET COUNT 182 TH/MM3 (150-450); RED BLOOD COUNT 4.27 MIL/MM3 (4.50-5.90); RED CELL DISTRIBUTION WIDTH 16.4 % (11.6-17.2); WHITE BLOOD COUNT 8.2 TH/MM3 (4.0-11.0)
[2017-07-28 16:32] LABS: CHLORIDE 105 MEQ/L (98-107); SODIUM (NA) 138 MEQ/L (136-145)
[2017-07-28 16:35] LABS: ALBUMIN 3.8 GM/DL (3.4-5.0); BICARBONATE 29.5 MEQ/L (21.0-32.0); BLOOD UREA NITROGEN 8 MG/DL (7-18); CALCIUM 8.7 MG/DL (8.5-10.1); GLUCOSE,RANDOM 95 MG/DL (74-106)
[2017-07-28 16:38] LABS: ALT (GPT) 174 U/L (12-78); AST (GOT) 100 U/L (15-37)
[2017-07-28 16:39] LABS: CREATININE 0.98 MG/DL (0.60-1.30); GLOMERULAR FILTRATION RATE 100 ML/MIN (>89)
[2017-07-28 16:40] LABS: TOTAL BILIRUBIN ADULT 0.9 MG/DL (0.2-1.0); TOTAL PROTEIN 7.4 GM/DL (6.4-8.2)
[2017-07-28 16:41] LABS: ALKALINE PHOSPHATASE 94 U/L (45-117)
--- NOTE | 2017-07-28 17:07 | PD ---
HPI Chief Complaint: Sickle Cell Time Seen by Provider: 16:13 Travel History International Travel<30 days: No Contact w/Intl Traveler<30days: No Traveled to known affect area: No History of Present Illness HPI 47-year-old man presents to the emergency department complaining of back shoulder. Pain associated with sickle cell disease. Patient has a history of sickle cell disease. Uses oxycodone at home if needed for pain. States it was not working. Over the past day or so he's had worsening pain. Feels similar to her sickle cell crisis in the past. He's also been sick with URI symptoms or cough cold symptoms for the past 2 weeks. No fever. A little bit of shortness of breath. History Past Medical History Narrative Medical Sickle cell disease Social History Alcohol Use: No Tobacco Use: No Allergies-Medications (Allergen,Severity, Reaction): Coded Allergies: No Known Allergies (Unverified Adverse Reaction, Unknown, 07/28/17) Reported Meds & Prescriptions Reported Meds & Active Scripts Active Percocet (Oxycodone-Acetaminophen) 5-325 mg Tab 1 Tab PO Q6H PRN Reported Multiple Vitamin 1 Tab 1 Tab PO DAILY Folic Acid 1 Mg Tablet Review of Systems Except as stated in HPI: all other systems reviewed are Neg Physical Exam Narrative GENERAL: Well-appearing 47-year-old man, no acute distress. Appears uncomfortable, nontoxic. SKIN: Focused skin assessment warm/dry. HEAD: Atraumatic. Normocephalic. NECK: Trachea midline. No JVD. CARDIOVASCULAR: Regular rate and rhythm. No murmur appreciated. RESPIRATORY: No accessory muscle use. Clear to auscultation. Breath sounds equal bilaterally. GASTROINTESTINAL: Abdomen soft, non-tender, nondistended. Hepatic and splenic margins not palpable. MUSCULOSKELETAL: No obvious deformities. No edema. NEUROLOGICAL: Awake and alert. No obvious cranial nerve deficits. Motor grossly within normal limits. Normal speech. PSYCHIATRIC: Appropriate mood and affect; insight and judgment normal. Data Data Last Documented VS Vital Signs Date Time Temp Pulse Resp B/P (MAP) Pulse Ox O2 Delivery O2 Flow Rate FiO2 07/28/17 16:24 71 20 149/68 (95) 98 07/28/17 14:04 98.3 Orders Orders Complete Blood Count With Diff (07/28/17 16:07) Comprehensive Metabolic Panel (07/28/17 16:07) Retic Count (07/28/17 16:07) Iv Access Insert/Monitor (07/28/17 16:07) Sodium Chloride 0.9% Flush (Ns Flush) (07/28/17 16:15) Ondansetron Inj (Zofran Inj) (07/28/17 16:15) Hydromorphone Pf Inj (Dilaudid Pf Inj) (07/28/17 16:15) Hydromorphone Pf Inj (Dilaudid Pf Inj) (07/28/17 17:00) Hydromorphone Pf Inj (Dilaudid Pf Inj) (07/28/17 18:00) Ed Discharge Order (07/28/17 17:59) Labs Laboratory Tests Test 07/28/17 16:15 White Blood Count 8.2 TH/MM3 Red Blood Count 4.27 MIL/MM3 Hemoglobin 10.5 GM/DL Hematocrit 33.1 % Mean Corpuscular Volume 77.6 FL Mean Corpuscular Hemoglobin 24.7 PG Mean Corpuscular Hemoglobin Concent 31.8 % Red Cell Distribution Width 16.4 % Platelet Count 182 TH/MM3 Mean Platelet Volume 8.9 FL Neutrophils (%) (Auto) 58.4 % Lymphocytes (%) (Auto) 30.8 % Monocytes (%) (Auto) 7.6 % Eosinophils (%) (Auto) 2.2 % Basophils (%) (Auto) 1.0 % Neutrophils # (Auto) 4.8 TH/MM3 Lymphocytes # (Auto) 2.5 TH/MM3 Monocytes # (Auto) 0.6 TH/MM3 Eosinophils # (Auto) 0.2 TH/MM3 Basophils # (Auto) 0.1 TH/MM3 CBC Comment AUTO DIFF Differential Comment AUTO DIFF CONFIRMED Sickle Cells 1+ Target Cells 1+ Tear Drop Cells 1+ Ovalocytes 1+ Reticulocyte Count 2.7 % Absolute Reticulocyte Count 114.9 MIL/L Blood Urea Nitrogen 8 MG/DL Creatinine 0.98 MG/DL Random Glucose 95 MG/DL Total Protein 7.4 GM/DL Albumin 3.8 GM/DL Calcium Level 8.7 MG/DL Alkaline Phosphatase 94 U/L Aspartate Amino Transf (AST/SGOT) 100 U/L Alanine Aminotransferase (ALT/SGPT) 174 U/L Total Bilirubin 0.9 MG/DL Sodium Level 138 MEQ/L Potassium Level 4.1 MEQ/L Chloride Level 105 MEQ/L Carbon Dioxide Level 29.5 MEQ/L Anion Gap 4 MEQ/L Estimat Glomerular Filtration Rate 100 ML/MIN [facility] Medical Decision Making Medical Screen Exam Complete: Yes Emergency Medical Condition: Yes Interpretation(s) LABS: CBC remarkable for mild anemia. CMP remarkable for mildly elevated AST and healthy. Differential Diagnosis Sickle cell pain, vaso-occlusive crisis, acute chest syndrome, other Narrative Course Medical decision making 47-year-old male presents ED with sickle cell crisis. Some URI symptoms. No fevers. Looks well. Lung exams unremarkable. We'll plan treatment for vaso- occlusive crisis. I don't think he has evidence pneumonia or acute chest syndrome. FINAL: Patient feeling improved. 3 doses of IV hydromorphone. Has medications at home. Offered admission but declines. He'll return for any worsening symptoms. Diagnosis Primary Impression: Sickle cell pain crisis Additional Instructions: Continue current medications. Return to the emergency prior for any worsening trouble breathing, high fevers, worsening pain, or any other new or worsening symptoms. Med/Other Pt SpecificInfo: No Change to Meds Disposition: 01 DISCHARGE HOME Condition: Stable Brett Roberts MD Jul 28, 2017 17:07
[2017-07-28 17:22] LABS: OVALOCYTES 1+ (NORMAL); SICKLE CELLS 1+ (NORMAL); TARGET CELLS 1+ (NORMAL); TEARDROP RBCS 1+ (NORMAL)
[2017-07-28 17:27] LABS: RETIC # 114.9 MIL/L (20.0-150.0); RETIC % 2.7 % (0.4-3.0)
== END 2017-07-28 18:58 | disposition home or self-care (01) ==
LOC: PHED 13:07 → PHEFT 18:58
DX: D57.00 Hb-SS disease with crisis, unspecified (principal)
CPT/HCPCS: 80053; 85025; 85044; 96374; 96375; 96376; 99284; J1170; J2405

== ENCOUNTER 2017-08-10 13:09 | Emergency (ER) | payer OTHER, MEDICAID ==
[~2017-08-10] VITALS: Ht 177.8 cm; Wt 101.8 kg
[~2017-08-10 13:09] MED LIST changes: +FOLI1TAB6; +MULTTAB67 PO
[2017-08-10 13:11] VITALS: BP 161/102; PULSE 76; RESP 18; TEMP 98.5; O2SAT 99
[2017-08-10] MEDS ORDERED: SODIUM CHLOR 0.9% 1000 ML INJ 1,000 ML IV ONE (14:01)
--- NOTE | 2017-08-10 14:06 | PD ---
HPI Chief Complaint: Sickle Cell Time Seen by Provider: 13:54 Travel History International Travel<30 days: No Contact w/Intl Traveler<30days: No Traveled to known affect area: No History of Present Illness HPI 47-year-old male complains of back pain and shoulder pain. Patient has history of severe disease and this is typical of his sickle cell crisis pain. Patient denies any headache. Patient denies any neck pain. Patient denies any chest pain or shortness of breath. Patient states that he has mild dry cough recently. Patient denies abdominal pain. Patient denies any nausea vomiting diarrhea. Patient denies any fever chills. Patient states the pain is severe sharp pain localized to the back and the shoulders area. Patient denies any pain radiation. On a scale of 1-10 the pain is a 10. PFSH Past Medical History Anemia: Yes (SICKLE CELL DISEASE) Arthritis: No Asthma: Yes Autoimmune Disease: No Blood Disorders: Yes (SICKLE CELL) Heart Rhythm Problems: No Cancer: No Cardiovascular Problems: Yes High Cholesterol: No Chemotherapy: No Chest Pain: No Congestive Heart Failure: No COPD: No Cerebrovascular Accident: No Diabetes: No Diminished Hearing: No Endocrine: No Gastrointestinal Disorders: No GERD: No Glaucoma: No Genitourinary: No Headaches: No Hepatitis: No Hiatal Hernia: No Hypertension: No Immune Disorder: No Implanted Vascular Access Dvce: No Kidney Stones: No Musculoskeletal: No Neurologic: No Psychiatric: No Reproductive: No Respiratory: No Immunizations Current: Yes Migraines: No Myocardial Infarction: No Radiation Therapy: No Renal Failure: No Seizures: No Sickle Cell Disease: Yes Sleep Apnea: No Thyroid Disease: No Ulcer: No Past Surgical History Abdominal Surgery: Yes Appendectomy: No Cholecystectomy: Yes Ear Surgery: No Eye Surgery: No Other Surgery: Yes (CHOLECYSTECTOMY ) Social History Alcohol Use: No Tobacco Use: No Substance Use: Yes (OCCASSIONAL THC) Allergies-Medications (Allergen,Severity, Reaction): Coded Allergies: No Known Allergies (Unverified Adverse Reaction, Unknown, 08/10/17) Reported Meds & Prescriptions Reported Meds & Active Scripts Active Percocet (Oxycodone-Acetaminophen) 5-325 mg Tab 1 Tab PO Q6H PRN Reported Multiple Vitamin 1 Tab 1 Tab PO DAILY Folic Acid 1 Mg Tablet Review of Systems General / Constitutional: No: Fever Eyes: No: Visual changes HENT: No: Headaches Cardiovascular: No: Chest Pain or Discomfort Respiratory: No: Shortness of Breath Gastrointestinal: No: Abdominal Pain Genitourinary: No: Dysuria Musculoskeletal: Positive: Pain Skin: No Rash Neurologic: No: Weakness Psychiatric: No: Depression Endocrine: No: Polydipsia Hematologic/Lymphatic: No: Easy Bruising Physical Exam Narrative GENERAL: Well-nourished, well-developed patient. SKIN: Focused skin assessment warm/dry. HEAD: Normocephalic. EYES: No scleral icterus. No injection or drainage. NECK: Supple, trachea midline. No JVD or lymphadenopathy. CARDIOVASCULAR: Regular rate and rhythm without murmurs, gallops, or rubs. RESPIRATORY: Breath sounds equal bilaterally. No accessory muscle use. GASTROINTESTINAL: Abdomen soft, non-tender, nondistended. MUSCULOSKELETAL: No cyanosis, or edema. Full range of motion all extremity. BACK: Patient had diffuse tenderness over the back area, without obvious deformity. No CVA tenderness. Neurologic exam normal. Data Data Last Documented VS Vital Signs Date Time Temp Pulse Resp B/P (MAP) Pulse Ox O2 Delivery O2 Flow Rate FiO2 08/10/17 13:52 98 Room Air 08/10/17 13:11 98.5 76 18 161/102 (121) Orders Orders Basic Metabolic Panel (Bmp) (08/10/17 14:01) Complete Blood Count With Diff (08/10/17 14:01) Retic Count (08/10/17 14:01) Ecg Monitoring (08/10/17 14:01) Iv Access Insert/Monitor (08/10/17 14:01) Oximetry (08/10/17 14:01) Sodium Chloride 0.9% Flush (Ns Flush) (08/10/17 14:15) Sodium Chlor 0.9% 1000 Ml Inj (Ns 1000 M (08/10/17 14:01) Hydromorphone Pf Inj (Dilaudid Pf Inj) (08/10/17 14:15) Ketorolac Inj (Toradol Inj) (08/10/17 14:15) Diphenhydramine Inj (Benadryl Inj) (08/10/17 14:15) Ondansetron Inj (Zofran Inj) (08/10/17 14:15) Hydromorphone Pf Inj (Dilaudid Pf Inj) (08/10/17 15:15) Ed Discharge Order (08/10/17 15:15) Labs Laboratory Tests Test 08/10/17 14:22 White Blood Count 11.4 TH/MM3 Red Blood Count 4.32 MIL/MM3 Hemoglobin 10.8 GM/DL Hematocrit 32.9 % Mean Corpuscular Volume 76.3 FL Mean Corpuscular Hemoglobin 24.9 PG Mean Corpuscular Hemoglobin Concent 32.7 % Red Cell Distribution Width 17.2 % Platelet Count 193 TH/MM3 Mean Platelet Volume 8.1 FL Neutrophils (%) (Auto) 68.1 % Lymphocytes (%) (Auto) 21.4 % Monocytes (%) (Auto) 8.5 % Eosinophils (%) (Auto) 1.6 % Basophils (%) (Auto) 0.4 % Neutrophils # (Auto) 7.8 TH/MM3 Lymphocytes # (Auto) 2.4 TH/MM3 Monocytes # (Auto) 1.0 TH/MM3 Eosinophils # (Auto) 0.2 TH/MM3 Basophils # (Auto) 0.1 TH/MM3 CBC Comment DIFF FINAL Differential Comment Reticulocyte Count 3.4 % Absolute Reticulocyte Count 147.6 MIL/L Blood Urea Nitrogen 9 MG/DL Creatinine 1.09 MG/DL Random Glucose 125 MG/DL Calcium Level 8.9 MG/DL Sodium Level 140 MEQ/L Potassium Level 4.5 MEQ/L Chloride Level 105 MEQ/L Carbon Dioxide Level 28.5 MEQ/L Anion Gap 7 MEQ/L Estimat Glomerular Filtration Rate 89 ML/MIN MDM Medical Decision Making Medical Screen Exam Complete: Yes Emergency Medical Condition: Yes Interpretation(s) 1509 p.m. CBC WBC 11.4. Hemoglobin 10.8 hematocrit 32.9. MCV 76.3. Reticular count 3.4. BMP within normal limit. Differential Diagnosis Differential diagnosis including sickle cell crisis pain. Narrative Course 47-year-old male with back pain and shoulder pain. 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 Dilaudid 2 mg IV. Benadryl 50 mg IV. Toradol 30 mg IV. Zofran 4 mg IV. Diagnosis Primary Impression: Sickle cell pain crisis Patient Instructions: General Instructions Additional Instructions: Continue with medication home for pain. Follow-up with personal physician and manager community outreach. Return if worse. Med/Other Pt SpecificInfo: No Change to Meds Disposition: 01 DISCHARGE HOME Condition: Stable Rogerio,Hung MD Aug 10, 2017 14:06
[2017-08-10] MEDS ORDERED: ONDANSETRON HCL 4 MG/2 ML VIAL IV PUSH ONE (14:15)
[2017-08-10] MEDS ORDERED: HYDROmorphone HCL PF 2 MG/ML VIAL IV PUSH ONE ×2 (14:15→15:15)
[2017-08-10] MEDS ORDERED: SODIUM CHLORIDE 0.9% FLUSH 10 ML FLUSH IVF PRN (14:15)
[2017-08-10] MEDS ORDERED: diphenhydrAMINE HCL 50 MG/ML VIAL IV PUSH ONE (14:15)
[2017-08-10] MEDS ORDERED: KETOROLAC TROMETHAMINE 30 MG/ML (IVP) VIAL IV PUSH ONE (14:15)
[2017-08-10 14:40] LABS: AUTOMATED NEUTROPHIL # 7.8 TH/MM3 (1.8-7.7); BASOPHIL # 0.1 TH/MM3 (0-0.2); BASOPHIL % 0.4 % (0.0-2.0); EOSINOPHIL # 0.2 TH/MM3 (0-0.4); EOSINOPHIL % 1.6 % (0.0-4.0); HEMATOCRIT 32.9 % (39.0-51.0); HEMOGLOBIN 10.8 GM/DL (13.0-17.0); LYMPH % 21.4 % (9.0-44.0); LYMPHOCYTE # 2.4 TH/MM3 (1.0-4.8); MEAN CELL VOLUME 76.3 FL (80.0-100.0); MEAN CORPUSCULAR HEMOGLOBIN 24.9 PG (27.0-34.0); MEAN CORPUSCULAR HGB CONC 32.7 % (32.0-36.0); MEAN PLATELET VOLUME 8.1 FL (7.0-11.0); MONO % 8.5 % (0.0-8.0); NEUT % 68.1 % (16.0-70.0); PLATELET COUNT 193 TH/MM3 (150-450); RED BLOOD COUNT 4.32 MIL/MM3 (4.50-5.90); RED CELL DISTRIBUTION WIDTH 17.2 % (11.6-17.2); RETIC # 147.6 MIL/L (20.0-150.0); RETIC % 3.4 % (0.4-3.0); WHITE BLOOD COUNT 11.4 TH/MM3 (4.0-11.0)
[2017-08-10 15:05] LABS: BICARBONATE 28.5 MEQ/L (21.0-32.0); CALCIUM 8.9 MG/DL (8.5-10.1); CREATININE 1.09 MG/DL (0.60-1.30)
== END 2017-08-10 16:39 | disposition home or self-care (01) ==
LOC: NEPD 13:09
DX: D57.00 Hb-SS disease with crisis, unspecified (principal); M54.9 Dorsalgia, unspecified; M25.519 Pain in unspecified shoulder; J45.909 Unspecified asthma, uncomplicated
CPT/HCPCS: 80048; 85025; 85044; 96374; 96375; 96376; 99284; J1170; J1200; J1885; J2405; J7030